=== PATIENT | female | born 1960 | race Two or more races ===

== ENCOUNTER 2019-05-06 15:25 | Outpatient (CLI) | payer OTHER ==
[~2019-05-06 15:25] MED LIST: BICARSIM60 MG PO; LEVSIN0.125 MG PO
== END 2019-05-06 16:27 | disposition home or self-care (01) ==
LOC: RAD 15:25
DX: M25.551 Pain in right hip (principal); M25.552 Pain in left hip; M54.5 Low back pain

== ENCOUNTER 2019-05-18 11:26 | Emergency (ER) | payer OTHER ==
[~2019-05-18] VITALS: Ht 167.6 cm; Wt 98.0 kg
[2019-05-18] MEDS ORDERED: LEXAPRO20 MG (11:55)
[2019-05-18] MEDS ORDERED: HYZAAR 50-12.51 EACH (11:56)
[2019-05-18] MEDS ORDERED: SYNTHROID100 MCG (11:57)
== END 2019-05-18 19:20 | disposition home or self-care (01) ==
LOC: ER 11:26 → CPU-OBS 11:34 → ER 11:34
DX: R07.89 Other chest pain (principal)
CPT/HCPCS: G0378; G0379; 93005

== ENCOUNTER 2021-09-19 07:33 | Outpatient (CLI) | payer OTHER ==
[~2021-09-19 07:33] MED LIST changes: +HYZAAR 50-12.51 EACH; +LEXAPRO20 MG; +SYNTHROID100 MCG
== END 2021-09-19 07:41 | disposition home or self-care (01) ==
LOC: NUCLEAR 07:33
PROVIDERS: ATTEND Internal Medicine Gastroenterology
DX: R14.3 Flatulence (principal); R10.9 Unspecified abdominal pain; K57.30 Diverticulosis of large intestine without perforation or abscess without bleeding; K31.84 Gastroparesis; Z83.71 Family history of colonic polyps
CPT/HCPCS: 78264; A9541

== ENCOUNTER → 2023-02-20 | Emergency (ER) | payer OTHER ==
[~2023-02-20] VITALS: Ht 167.6 cm; Wt 100.2 kg
[~2023-02-20] MED LIST changes: +PEPCID AC20 MG PO; +ZOFRAN8 MG PO
== END | disposition home or self-care (01) ==
LOC: ER 19:55
DX: R11.2 Nausea with vomiting, unspecified (principal); B34.9 Viral infection, unspecified; R10.9 Unspecified abdominal pain; R51.9 Headache, unspecified; R53.81 Other malaise; R06.02 Shortness of breath; R53.1 Weakness; A08.8 Other specified intestinal infections; Z20.822 Contact with and (suspected) exposure to COVID-19

== ENCOUNTER 2024-07-23 18:17 | Emergency (ER) | payer OTHER ==
[~2024-07-23] VITALS: Ht 167.6 cm; Wt 97.5 kg
[2024-07-23] MEDS ORDERED: GLUMETZA500 MG (18:32)
[2024-07-23] MEDS ORDERED: DEXAMETHASONE SODIUM PHOSPHATE 4 MG/ML VIAL IM STA (18:49)
[2024-07-23] MEDS ORDERED: ORPHENADRINE CITRATE 30 MG/ML AMPUL IM STA (18:49)
[2024-07-23] MEDS ORDERED: ORPHENADRINE CITRATE 30 MG/ML AMPUL ONE (19:02)
[2024-07-23] MEDS ORDERED: DEXAMETHASONE SODIUM PHOSPHATE 4 MG/ML VIAL ONE (19:02)
[2024-07-23 19:07] LABS: HEMOGLOBIN 13.8 g/dL (12.0-15.00); MEAN CELL VOLUME 89.5 fL (80.00-100.00); MEAN CORPUSCULAR HGB CONC 34.6 g/dl (32.0-36.0); PLATELET COUNT 287 K/uL (150-450); RED BLOOD COUNT 4.47 M/uL (4.00-6.00); RED CELL DISTRIBUTION WIDTH 13.5 % (11.5-14.5)
[2024-07-23 19:49] LABS: ALBUMIN 3.5 gm/dL (3.4-5.0); BILIRUBIN TOTAL 0.26 mg/dL (0.3-1.2); CALCIUM 9.4 mg/dL (8.5-10.1); CREATININE SERUM 0.61 mg/dL (0.55-1.02); GFR 99.06; GLOBULINA 3.7 G/DL (2.4-3.5); POTASSIUM 3.61 mEq/L (3.5-5.1); TOTAL PROTEIN 7.2 gm/dL (6.4-8.2)
[2024-07-23 21:08] LABS: URINE APPEARANCE Clear; URINE BILIRRUBIN Negative (NEGATIVE); URINE BLOOD Negative; URINE COLOR Yellow; URINE GLUCOSE Negative (NEGATIVE); URINE KETONE Trace (NEGATIVE); URINE LEUKOCYTE Trace; URINE NITRATE Negative; URINE PROTEIN Negative (NEGATIVE); URINE UROBILINOGEN 0.2 E.U./dl
[2024-07-23 21:11] LABS: URINE BACTERIA 222.9 uL (0.0-1933); URINE EPITHELIAL CELLS 17.2 uL (0.0-38.8); URINE RBC 3.6 uL (0.0-20.8); URINE WBC 22.8 uL (0.0-23.2)
[2024-07-23] MEDS ORDERED: ONDANSETRON HCL 2 MG/ML VIAL IM STA (21:32)
[2024-07-23] MEDS ORDERED: ONDANSETRON HCL 2 MG/ML VIAL ONE (22:00)
== END 2024-07-23 22:03 | disposition home or self-care (01) ==
LOC: ER 18:18
DX: B34.9 Viral infection, unspecified (principal); R53.81 Other malaise; Z20.822 Contact with and (suspected) exposure to COVID-19